=== PATIENT | male | born 1945 | race Caucasian/White ===

== ENCOUNTER 2018-03-09 20:30 | Outpatient (CLI) | payer MEDICARE | END 2018-03-09 20:31 | disposition home or self-care (01) | LOC: SLEEPLAB 20:30 | DX: G47.30 Sleep apnea, unspecified (principal); G47.33 Obstructive sleep apnea (adult) (pediatric); G47.10 Hypersomnia, unspecified; G47.00 Insomnia, unspecified; F32.9 Major depressive disorder, single episode, unspecified; R06.83 Snoring; I10 Essential (primary) hypertension; R09.89 Other specified symptoms and signs involving the circulatory and respiratory systems | CPT/HCPCS: 95811 ==